=== PATIENT | female | born 1990 | race Caucasian/White ===

== ENCOUNTER 2020-04-15 04:17 | Emergency (ER) | payer SELFPAY ==
[~2020-04-15] VITALS: Ht 157.5 cm; Wt 49.9 kg
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
--- NOTE | 2020-04-15 04:45 | NUR ---
PT SIGNED WAIVER AND PICKED UP FOR CT
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
--- NOTE | 2020-04-15 04:56 | NUR ---
BACK FROM CT
[2020-04-15] MEDS ORDERED: HYDROCODONE/APAP 5/325MG 1 EACH TABLET ONE (06:17)
[2020-04-15 06:29] VITALS: BP 121/83
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
[2020-04-15] MEDS ORDERED: HYDROCODONE/APAP 5/325MG 1 EACH TABLET PO ONE (06:30)
== END 2020-04-15 06:30 | disposition home or self-care (01) ==
LOC: ER 04:21
DX: S02.69XA Fracture of mandible of other specified site, initial encounter for closed fracture (principal); Y04.0XXA Assault by unarmed brawl or fight, initial encounter; Y93.89 Activity, other specified; Y92.89 Other specified places as the place of occurrence of the external cause; Y99.8 Other external cause status
CPT/HCPCS: 70486-TC